=== PATIENT | male | born 1980 | race Caucasian/White ===

== ENCOUNTER 2017-03-22 13:28 | Emergency (ER) | payer MEDICAID ==
--- NOTE | 2017-03-22 14:08 | EDM.PDOC ---
ED HPI GENERAL MEDICAL PROBLEM - General Chief Complaint: Genitourinary Problem Stated Complaint: [id number] SOMETHING WRONG WITH KIDNEYS Time Seen by Provider: 03/22/17 14:08 Source of Information: Reports: Patient, RN, RN Notes Reviewed History Limitations: Reports: No Limitations - History of Present Illness INITIAL COMMENTS - FREE TEXT/NARRATIVE: Onset 4 days ago of left flank pain. No known injury. Patient reports frequent urination on day of onset but now now. Denies radiating pain, hematuria, dysuria , fever or chills. Severity: Moderate Improves with: Reports: None Worsens with: Reports: None Associated Symptoms: Reports: No Other Symptoms Left Flank Pain Score (Numeric/FACES): 5 - Related Data Allergies Allergy/AdvReac Type Severity Reaction Status Date / Time No Known Allergies Allergy Verified 03/22/17 14:22 Home Meds: Home Meds . [No Known Home Meds] 03/22/17 [History] Social & Family History - Family History Family Medical History: Noncontributory ED ROS GENERAL - Review of Systems Review Of Systems: ROS reveals no pertinent complaints other than HPI. ED EXAM, RENAL/ - Physical Exam Exam: See Below Exam Limited By: No Limitations General Appearance: Obese Head: Atraumatic, Normocephalic Neck: Normal Inspection, Supple, Non-Tender, Full Range of Motion Respiratory/Chest: No Respiratory Distress, Lungs Clear, Normal Breath Sounds, No Accessory Muscle Use, Chest Non-Tender Cardiovascular: Normal Peripheral Pulses, Regular Rate, Rhythm, No Edema, No Gallop, No JVD, No Murmur, No Rub GI/Abdominal: Other (benign obese abdomen.) Back Exam: Normal Inspection, Full Range of Motion, NT Extremities: Other (nontender to palpation at area of pain. Full ROM T and L spine. ) Neurological: Alert, Oriented, CN II-XII Intact, Normal Cognition, Normal Gait, Normal Reflexes, No Motor/Sensory Deficits Psychiatric: Normal Affect, Normal Mood Skin Exam: Warm, Dry, Intact, Normal Color, No Rash Course - Orders/Labs/Meds Labs: Laboratory Tests 03/22/17 Range/Units 13:59 Urine Color Yellow (YELLOW) Urine Appearance Clear (CLEAR) Urine pH 5.5 (5.0-9.0) Ur Specific [place] 1.025 (1.005-1.030) Urine Protein Negative (NEGATIVE) Urine Glucose (UA) Negative (NEGATIVE) Urine Ketones Negative (NEGATIVE) Urine Occult Blood Negative (NEGATIVE) Urine Nitrite Negative (NEGATIVE) Urine Bilirubin Negative (NEGATIVE) Urine Urobilinogen 0.2 (0.2-1.0) mg/dL Ur Leukocyte Esterase Negative (NEGATIVE) Urine RBC Not seen /HPF Urine WBC 0-5 (0-5/HPF) /HPF Ur Epithelial Cells Rare /HPF Urine Bacteria Not seen (0-FEW/HPF) /HPF Departure - Departure Time of Disposition: 14:44 Disposition: Home, Self-Care 01 Condition: good Clinical Impression: Thoracolumbar back pain, Flank pain - Discharge Information Instructions: Flank Pain, [facility], Lumbosacral Strain Forms: ED Department Discharge Additional Instructions: Activity as tolerated. Alternate head and ice to area of pain. Motrin as needed for pain, follow directions on bottle.
[2017-03-22 14:51] VITALS: BP 123/74
== END 2017-03-22 14:53 | disposition home or self-care (01) ==
LOC: DL.ED 13:28
DX: M54.5 Low back pain (principal); M54.6 Pain in thoracic spine; R10.9 Unspecified abdominal pain
CPT/HCPCS: 81001; 99283